=== PATIENT | male | born 1985 ===

== ENCOUNTER 2024-05-14 12:53 | Outpatient (AMB) | payer OTHER, SELFPAY ==
--- NOTE | 2024-05-14 12:54 | A.OFFVIS_ITS ---
Vital Signs 05/14/24 13:03 Height 6 ft 5 in Weight 246 lb 11.156 oz BMI 29.3 BP 116/70 Blood Pressure Location Rt brachial Position Sitting Pulse 76 Pulse Source Pulse Oximeter Pulse Oximetry (%) 99 Oxygen Delivery Method Room Air Intake Visit Reasons: joint pain Intake Note: Patient presents for joint pain. Feeling aches/stiffness on both arms, hands and fingers. Been feeling aches/stiffness for two years. I take Tumeric and it reduces the pain but doesn't take it away. Allergies No Known Allergies Allergy (Verified 05/14/24 13:01) Medication List - Last Reconciled 05/14/24 by Ivette Sweeney MD No Known Home Meds HPI Comments Details: This is a 38-year-old male who presents for evaluation of multiple hand pain. States that he has had generalized aching and stiffness of his entire body for years but has been worse in the last 2 years. Mostly affecting his hands. He takes turmeric 950 mg in the morning which provides some short term relief. 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 Now he plays less than 30 minutes a week. He walks 30 minutes to 2 hours almost daily.. States that sometimes his feet hurt with walking. He denies any skin rashes. Has any swollen joints. He is unaware of any family history of an autoimmune rheumatic disease. States that he used to see a psychotherapist in the past. [facility] Medical History (Updated 05/14/24 @ 13:48 by Ivette Sweeney MD) Pain in scrotum Bladder pain Joint pain in fingers of both hands Lightheaded Depressive disorder Surgical History S/P repair of hydrocele Family History Father Neoplasm of skin Social History Household Members: Other Housing: House Alcohol intake: current Comment: Ocassionally Patient Tobacco Use Status: Never used Tobacco Review of Systems [facility] [place] Reports myalgias, Reports arthralgias and Reports stiffness Skin/Breast Denies rash Physical Exam Vital Signs: Last Vital Signs Pulse 76 05/14/24 13:03 BP 116/70 05/14/24 13:03 Pulse Ox 99 05/14/24 13:03 Oxygen Delivery Method Room Air 05/14/24 13:03 BMI result Body Mass Index 29.3 Const General: cooperative, healthy appearing and comfortable Nutritional Appearance: overweight Orientation/consciousness: patient oriented x3 Limitations: no limitations HEENT Head: Yes normocephalic and Yes atraumatic Mouth: moist mucous membranes Resp Effort & Inspection: normal respiratory effort and able to speak in complete sentences Skin General skin exam: no rashes or lesions noted Neuro General: patient oriented x3 Extrem Other: Very subtle osteoarthritic changes of both hands with few Heberden's nodes No active synovitis Normal nailfold capillaroscopy Multiple fibromyalgia tender points Normal range of motion of hands, wrists, elbows and shoulders without pain No knee pain with flexion-extension bilaterally Results Reviewed Results Reviewed: Labs 03/2023 [facility] IFA/RF/RPR/Lyme screen/ESR/CRP all negative/normal TGA antibody negative Assessment & Plan Assessment & Plan (1) Joint pain in fingers of both hands: Code(s): M25.541 - Pain in joints of right hand; M25.542 - Pain in joints of left hand Category: Medical Plan: 38-year-old male presents for evaluation of diffuse pains especially in both hands. I do not see any evidence of an autoimmune rheumatic disease. Has very subtle osteoarthritic changes of both hands. However the majority of his complaints are due to fibromyalgia Discussed management of fibromyalgia with patient. Is a noninflammatory, non- autoimmune central afferent processing disorder leading to a diffuse pain syndrome. I suggested evaluation by a psychtherapist and/or a psychiatrist. Discuss a referral for a sleep study from PCP to rule out NAOMI. Discuss CBT for sleep with psychotherapist. Patient would benefit from increased physical activity, either through formal physical therapy or by joining a gym. Patient walks daily regularly. Advised patient to add other low-impact exercises to his routine such as light weights, water aerobics, swimming. Follow-up with PCP Plan I spent 30 minutes reviewing patient's chart, evaluating patient, counseling patient and documenting in the chart Coding Level of Care Code New Pt Level 3 (35775) Diagnoses Joint pain in fingers of both hands M25.541; M25.542
[2024-05-14 13:03] VITALS: BP 116/70; PULSE 76; O2SAT 99; BMI 29.3
== END 2024-05-14 13:42 | disposition home or self-care (01) ==
PROVIDERS: PCP Physician Assistant; Visit Provider Student in an Organized Health Care Education/Training Program
DX: M25.541 Pain in joints of right hand (principal); M25.542 Pain in joints of left hand
CPT/HCPCS: 99203

== ENCOUNTER → 2024-05-14 12:53 | Outpatient (BNVA) | payer OTHER, SELFPAY | PROVIDERS: PCP Physician Assistant; Visit Provider Student in an Organized Health Care Education/Training Program ==

== ENCOUNTER 2024-10-02 18:17 | Outpatient (REF) | payer OTHER, SELFPAY ==
--- NOTE | ~2024-10-02 | MR_ITS ---
CLINICAL HISTORY: Encephalopathy MR Brain without gadolinium Comparison: None Findings: No restricted diffusion. No intracranial mass or hemorrhage. No midline shift. No hydrocephalus. Vascular flow voids are intact. The orbits are normal. There is a mucous retention cyst within the right maxillary sinus. There is mucosal thickening within the left maxillary sinus. No focal bone lesion. IMPRESSION: Unremarkable brain MRI. This document has been electronically signed by: Kassandra Hawk MD on 10/03/2024 14:11:53
== END 2024-10-02 18:18 | disposition home or self-care (01) ==
LOC: HO.MRI 18:17
PROVIDERS: PCP Physician Assistant; Visit Provider Psychiatry & Neurology Neurology
DX: G93.40 Encephalopathy, unspecified (principal)
CPT/HCPCS: 70551

== ENCOUNTER → 2024-10-02 18:26 | Outpatient (BNV) | payer OTHER, SELFPAY | PROVIDERS: PCP Physician Assistant; Visit Provider Radiology Diagnostic Radiology | DX: G93.40 Encephalopathy, unspecified (principal) | CPT/HCPCS: 70551 ==